=== PATIENT | female | born 1950 | race Caucasian/White ===

== ENCOUNTER → 2019-05-03 16:33 | Outpatient (CLI) | payer MEDICARE, SELFPAY ==
--- NOTE | 2019-05-03 16:40 | DI.RAD.S_ITS ---
PROCEDURE: XR KNEE LT 3V INDICATIONS: left posterior knee pain TECHNIQUE: 3 views of the knee were acquired. COMPARISON: None. FINDINGS: Bones: No fractures or dislocations. No suspicious bony lesions. Mild tricompartmental knee joint degeneration. Soft tissues: Small joint effusion. No suspicious soft tissue calcifications. IMPRESSION: 1. Mild degenerative changes. 2. Small knee joint effusion. Dictated by: Pedro Ling M.D. on 05/03/2019 at 17:40 Approved by: Pedro Ling M.D. on 05/03/2019 at 17:48
== END ==
PROVIDERS: Visit Provider Nurse Practitioner Family
DX: M25.562 Pain in left knee (principal); M25.462 Effusion, left knee
CPT/HCPCS: 73562

== ENCOUNTER → 2019-10-10 09:26 | Outpatient (CLI) | payer MEDICARE, SELFPAY ==
[2019-10-10 10:03] LABS: Add Manual Diff / Slide Review NO; Basophils Absolute Auto 0 /uL (0-100); Basophils Percent Auto 0.6 % (0-2); Eosinophils Absolute Auto 100 /uL (0-450); Eosinophils Percent Auto 0.8 % (2-4); Hematocrit 43.7 % (36-46); Hemoglobin 14.7 g/dL (12.0-16.0); Lymphocytes Absolute Auto 1500 /uL (1100-4500); Lymphocytes Percent Auto 21.4 % (25-40); Mean Corpuscular HGB Conc 33.7 % (30-36); Mean Corpuscular Hemoglobin 30.9 PG (26-34); Mean Corpuscular Volume 91.4 fL (80-100); Monocytes Absolute Auto 600 /uL (0-900); Monocytes Percent Auto 9.5 % (3-14); Neutrophils Absolute Auto 4600 /uL (1500-7000); Neutrophils Percent Auto 67.7 % (50-75); Platelet Count 300 X10^3/uL (150-400); Red Blood Cell Count 4.78 X10^6/uL (4.0-5.2); Red Cell Distribution Width 14.5 % (11.6-14.8); White Blood Cell Count 6.8 X10^3/uL (4.5-11.0)
[2019-10-10 10:37] LABS: Alanine Aminotransferase 21 IU/L (<35); Albumin 4.7 g/dL (3.5-5.0); Albumin Globulin Ratio 1.3 (1.0-2.8); Alkaline Phosphatase 62 U/L (38-126); Aspartate Aminotransferase 28 IU/L (14-36); BUN Creatinine Ratio 23.8 (6-22); Bilirubin Total 0.9 mg/dL (0.2-1.3); Blood Urea Nitrogen 19 mg/dL (7-17); Calcium 9.9 mg/dL (8.4-10.2); Carbon Dioxide 27 mmol/L (22-32); Chloride 103 mmol/L (98-107); Cholesterol 307 mg/dL (140-199); Estimated Glomerular Filt Rate > 60.0 mL/min (>60); Globulin 3.6 g/dL (1.7-4.1); Glucose 104 mg/dL (80-110); HDL Cholesterol 87 mg/dL (40-60); HEMOLYSIS < 15 (0-50); LDL Cholesterol Calculated 197 mg/dL (<100); Potassium 4.3 mmol/L (3.4-5.1); Sodium 140 mmol/L (137-145); Total Protein 8.3 g/dL (6.3-8.2); Triglycerides 115 mg/dL (35-150)
[2019-10-10 11:08] LABS: Thyroid Stimulating Hormone 2.57 uIU/mL (0.47-4.68)
== END ==
PROVIDERS: PCP Family Medicine; Referring Provider Family Medicine; Visit Provider Family Medicine
DX: E03.9 Hypothyroidism, unspecified (principal)
CPT/HCPCS: 36415; 80053; 80061; 84443; 85025

== ENCOUNTER 2021-01-31 17:57 | Emergency (ER) | payer MEDICARE, SELFPAY ==
[2021-01-31 18:07] VITALS: BP 154/79; PULSE 81; RESP 15; TEMP 36.7; O2SAT 97; BMI 27.8
--- NOTE | 2021-01-31 18:13 | DI.US.S_ITS ---
PROCEDURE: US PERIPH VENOUS LOW EXTREM RT INDICATIONS: right lower leg swelling TECHNIQUE: Real-time imaging, as well as color and pulse Doppler interrogation, were performed of the lower extremity deep veins from the inguinal ligament to the popliteal fossa. COMPARISON: None. FINDINGS: There is occlusive thrombus seen within the popliteal vein as well as the tibioperoneal trunk. IMPRESSION: Deep venous thrombosis as described above. Dictated by: Tanya Leyva M.D. on 01/31/2021 at 18:51 Approved by: Tanya Leyva M.D. on 01/31/2021 at 18:52
--- NOTE | 2021-01-31 20:04 | PC.NURSE ---
Recent travel back from [place] one week ago. Has been working long hours on hard cement floor. Noticed right calf and posterior knee pain yesterday with swelling and bruising noted I was working it thinking it was a annie horse
--- NOTE | 2021-01-31 23:21 | ED_ITS ---
HPI - Extremity Problem General Chief complaint: Extremity Problem,Nontraumatic Stated complaint: rt leg pain Time Seen by Provider: 01/31/21 23:21 Source: patient Mode of arrival: Ambulatory Limitations: no limitations History of Present Illness HPI Narrative: 70-year-old woman with a history of hypothyroidism presents with right lower extremity swelling and tenderness. She notes that she did fly home from [place] about a week ago this is only a 2-3 hour flight she is typically quite active. She has had no recent surgeries no known cancers. In the last 24 hours she had some increasing pain in the lower right calf that she thought was a charley horse in took some minimal supplementation to help with this. It awoke her from sleep this morning due to the increased spasm. She is having increasing pain overall today. She reports no chest pain, palpitations, shortness of breath she does note that she has had slight increase in overall fatigue. She describes no abdominal pain, change to bowel or bladder habits or any acute skin findings. Related Data Previous Rx's Medication Instructions Recorded thyroid (pork) 60 mg tablet 60 mg PO DAILY #90 tab 11/28/19 Allergies Allergy/AdvReac Type Severity Reaction Status Date / Time Sulfa (Sulfonamide Allergy Verified 01/31/21 18:09 Antibiotics) Review of Systems Review of Systems Narrative: Remainder of complete review of systems is otherwise unremarkable except for that included in the HPI. Patient History Medical History Chicken pox DVT (deep venous thrombosis) Fibromyalgia Food allergy Hypothyroidism Measles Mumps Osteoarthritis Posterior left knee pain (03/2019) Surgical History History of carpal tunnel repair Family History Grandfather Alcoholic Grandfather No problems noted. Grandmother No problems noted. Social History marital status: number of children: 2 household members: spouse lives independently: Yes caregiver/support person: No housing: house education level: college occupational status: employed Smoking Status: Former smoker second hand exposure: No alcohol intake: current substance use type: does not use Smoking Status: Former smoker alcohol intake frequency: a few times a week Substance Use Type: does not use Exam Narrative Exam Narrative: General: Alert appropriate in no acute distress Respiratory: Able to speak in full sentences, no obvious respiratory distress Skin: No obvious rashes, warm and dry Neurologic: Grossly intact no obvious asymmetries or abnormalities Psych: appropriate insight and affect, cooperative Extremity: Lower right posterior calf is slightly tender, mildly swollen and no evidence of cellulitis, abscess or superficial thrombophlebitis Initial Vital Signs Initial Vital Signs: Vital Signs Temperature 98.0 F 01/31/21 18:07 Pulse Rate 81 01/31/21 18:07 Respiratory Rate 15 01/31/21 18:07 Blood Pressure 154/79 H 01/31/21 18:07 Pulse Oximetry 97 01/31/21 18:07 Course Orders Ordered: Discontinued Medications Acetaminophen (Acetaminophen 325 Mg Tablet) 975 mg PO NOW ONE Stop: 01/31/21 23:37 Last Admin: 01/31/21 23:45 Dose: 975 mg Documented by: BLAIR Apixaban (Apixaban 5 Mg Tablet) 5 mg PO NOW ONE Stop: 01/31/21 23:37 Last Admin: 01/31/21 23:45 Dose: 5 mg Documented by: BLAIR Vital Signs Vital signs: Vital Signs - 8 hr 01/31/21 23:45 Pulse Rate 67 Respiratory Rate 16 Blood Pressure 183/61 H Pulse Oximetry 98 MDM - Extremity (Nontraumatic) Imaging Data US - DVT: Radiologist's Impression: PROCEDURE: US PERIPH VENOUS LOW EXTREM RT INDICATIONS: right lower leg swelling TECHNIQUE: Real-time imaging, as well as color and pulse Doppler interrogation, were performed of the lower extremity deep veins from the inguinal ligament to the popliteal fossa. COMPARISON: None. FINDINGS: There is occlusive thrombus seen within the popliteal vein as well as the tibioperoneal trunk. IMPRESSION: Deep venous thrombosis as described above. Dictated by: Tanya Leyva M.D. on 01/31/2021 at 18:51 MDM Narrative Medical decision making narrative: 70-year-old woman with right DVT. No obvious inciting reason for this. No evidence of extension proximal to the knee or of pulmonary embolism. She started on Eliquis at 5 mg b.i.d.. Instructions regarding this and need for follow-up with her primary care physician to further assess why she may have developed this DVT. Questions are answered and she is safe for home discharge Discharge Plan Departure Patient Disposition: Home Clinical Impression: Deep vein thrombosis of lower extremity Qualifiers: Affected thrombotic vein of extremity: popliteal Chronicity: acute Laterality: right Qualified Code(s): I82.431 - Acute embolism and thrombosis of right popliteal vein Instructions: DI for Deep Vein Thrombosis, Apixaban Activity Restrictions/Additional Instructions: Thank you for coming in today You have an isolated right calf deep venous thrombosis For pain you can use Tylenol and sometimes a compression sock will significantly help. You might try compression socks that are marketed for running. They typically have them in [employer]. These are very compressive, typically a bit more comfortable to wear for long periods of time. The point of the socks is to make it hurt less. If that is not helping you do not need to continue wearing them I am going to start you on Eliquis/apixaban. This is of blood thinner. You will likely need this for 6 months. If you are in any type of accident or hit your head, you are at increased risk of bleeding and need to be seen and evaluated. Please do not use aspirin or nonsteroidals like ibuprofen or Aleve while you are taking a blood thinner. Please schedule an appointment with Dr. Duckworth within the next week. She may want to do additional workup to see if we can figure out why you developed this blood clot. If you notice that your having severe chest pain, shortness of breath or rapid heart rate, all signs of a pulmonary embolism(a blood clot in your lungs), you need to come to the emergency room for further evaluation Prescriptions: No Action thyroid (pork) [[facility] Thyroid] 60 mg tablet 60 mg PO DAILY Qty: 90 RF: 3 Referrals: Veronica Tidwell MD [Primary Care Provider] -
[2021-01-31 23:45] VITALS: BP 183/61; PULSE 67; RESP 16; O2SAT 98
[2021-01-31] MEDS: ACETAMINOPHEN 325 MG TABLET 975 MG PO (23:45)
[2021-01-31] MEDS: APIXABAN 5 MG TABLET PO (23:45)
== END 2021-01-31 23:46 | disposition home or self-care (01) ==
PROVIDERS: Emergency Provider Emergency Medicine; PCP Family Medicine
DX: I82.431 Acute embolism and thrombosis of right popliteal vein (principal)
CPT/HCPCS: 93971; 99283

== ENCOUNTER 2023-06-12 16:16 | Emergency (ER) | payer OTHER, SELFPAY ==
[2023-06-12 16:51] VITALS: BP 183/77; PULSE 73; RESP 17; TEMP 36.1; O2SAT 95; BMI 27.4
--- NOTE | 2023-06-12 16:58 | DI.RAD.S_ITS ---
PROCEDURE: XR ACUTE ABDOMEN SERIES INDICATIONS: constipation TECHNIQUE: One view chest and two views of the abdomen were acquired. COMPARISON: None. FINDINGS: Surgical changes and devices: None. Chest: Lungs are clear. Heart size is normal. No pleural effusions. No pneumoperitoneum. Abdomen: Bowel gas pattern is normal. Normal to minimally increased quantity of solid stool in the ascending and descending colon. Minimal rectal stool. No suspicious calcifications. Visualized solid organ contours appear normal. Bones: No suspicious bony lesions. IMPRESSION: 1. Minimally increased quantity of colonic stool. Dictated by: Rocio Santamaria M.D. on 06/12/2023 at 17:45 Approved by: Rocio Santamaria M.D. on 06/12/2023 at 17:46
--- NOTE | 2023-06-12 20:08 | ED.GENADULT ---
HPI - General Adult General Chief complaint: Abdominal Pain Stated complaint: thinks has a blockage Time Seen by Provider: 06/12/23 19:51 Source: patient Mode of arrival: Ambulatory History of Present Illness HPI narrative: Patient is a 73-year-old female. No prior abdominal surgeries. States for the past several days she has felt very constipated. She gave herself an enema several days ago and did have a bowel movement. She then went a couple days without a bowel movement and gave herself another enema and then had another bowel movement afterwards. She states she still does not feel like she is completely emptying her bowels. She is having some nausea without vomiting. States she has not passed any flatus. No fevers. No urinary symptoms. No blood in her stool. Related Data Previous Rx's Medication Instructions Recorded hydrocortisone 2.5 % topical cream 1 applic [place] BID-QID PRN 12/19/22 with perineal applicator hemorrhoids #30 grams (Anusol-HC) thyroid (pork) 60 mg tablet ([employer] See Rx Instructions .Route 03/12/23 Thyroid) .COMPLEX #90 tabs Allergies Allergy/AdvReac Type Severity Reaction Status Date / Time Sulfa (Sulfonamide Allergy UNKNOWN Verified 06/12/23 16:51 Antibiotics) Review of Systems Constitutional Constitutional: Reports system reviewed and no additional complaints, except as documented Gastrointestinal Gastrointestinal: Reports system reviewed and no additional complaints, except as documented Genitourinary Genitourinary: Reports system reviewed and no additional complaints, except as documented Integumentary/Breasts Skin/Breast: Reports system reviewed and no additional complaints, except as documented Neurologic Neurologic: Reports system reviewed and no additional complaints, except as documented Patient History Medical History DVT (deep venous thrombosis) Posterior left knee pain (03/2019) Osteoarthritis Food allergy Fibromyalgia Mumps Measles Chicken pox Hypothyroidism Surgical History History of carpal tunnel repair Family History Grandfather Alcoholic Grandfather No problems noted. Grandmother No problems noted. Social History marital status: number of children: 2 household members: spouse lives independently: Yes caregiver/support person: No housing: house education level: college occupational status: employed Smoking Status: Former smoker second hand exposure: No alcohol intake: current substance use type: does not use Smoking Status: Former smoker alcohol intake frequency: a few times a week Substance Use Type: does not use Exam Initial Vital Signs Initial Vital Signs: Vital Signs Temperature 97.0 F L 06/12/23 16:51 Pulse Rate 73 06/12/23 16:51 Respiratory Rate 17 06/12/23 16:51 Blood Pressure 183/77 H 06/12/23 16:51 Pulse Oximetry 95 06/12/23 16:51 Oxygen Delivery Method Room Air 06/12/23 16:51 Const General: cooperative and comfortable Resp Effort & Inspection: normal respiratory effort Cardio Rate: regular rate GI Inspection: normal to inspection Neuro General: patient alert, patient awake and moves all extremities Course Orders Ordered: ED Orders 06/12/23 20:08 CT abdomen pelvis w con Stat 06/12/23 20:30 Basic Metabolic Panel Stat Complete Blood Count AUTO DIFF Stat Discontinued Medications Sodium Chloride (Normal Saline 0.9%) 1,000 mls @ 1,000 mls/hr IV BOLUS ONE Stop: 06/12/23 21:07 Last Infusion: 06/12/23 21:43 Dose: Infused Documented By: Admin: 06/12/23 20:43 Dose: 1,000 mls/hr Documented By: RENETTA Vital Signs Vital signs: Vital Signs - 8 hr 06/12/23 23:09 Temperature 98 F Pulse Rate 72 Respiratory Rate 16 Blood Pressure 138/74 Pulse Oximetry 97 Oxygen Delivery Method Room Air Medical Decision Making Lab Data Lab results reviewed: Yes I reviewed the patient's lab results. 06/12/23 20:30 06/12/23 20:30 Labs: Lab Results 06/12/23 Range/Units 20:30 WBC 8.4 (4.5-11.0) X10^3/uL RBC 4.73 (4.0-5.2) X10^6/uL Hgb 14.5 (12.0-16.0) g/dL Hct 43.3 (36-46) % MCV 91.6 (80-100) fL MCH 30.7 (26-34) PG MCHC 33.5 (30-36) % RDW 14.4 (11.6-14.8) % Plt Count 330 (150-400) X10^3/uL Neut % (Auto) 69.5 (50-75) % Lymph % (Auto) 18.9 L (25-40) % Giles % (Auto) 10.0 (3-14) % Eos % (Auto) 1.0 L (2-4) % Baso % (Auto) 0.6 (0-2) % Neut # (Auto) 5800 (5937-8269) /uL Lymph # (Auto) 1600 (0187-2211) /uL Giles # (Auto) 800 (0-900) /uL Eos # (Auto) 100 (0-450) /uL Baso # (Auto) 100 (0-100) /uL Sodium 139 (137-145) mmol/L Potassium 4.0 (3.4-5.1) mmol/L Chloride 103 (98-107) mmol/L Carbon Dioxide 23 (22-32) mmol/L BUN 17 (7-17) mg/dL Creatinine 0.63 (0.52-1.04) mg/dL Estimated GFR > 60 (>60) mL/min BUN/Creatinine Ratio 27.0 H (6-22) Glucose 91 (80-110) mg/dL Calcium 10.0 (8.4-10.2) mg/dL Urine Dip Bedside Urine Glucose Negative Bedside Urine Bilirubin - Negative Urine Specific [place] 1.010 Bedside Urine Occult Blood - Negative Bedside Urine pH 6.0 Bedside Urine Protein - Negative Bedside Urine Urobilinogen - Negative Bedside Urine Nitrite - Negative Bedside Urine Leukocytes - Negative Esterase Point of care testing: Urine Dip Bedside Urine Glucose Negative Bedside Urine Bilirubin - Negative Urine Specific [place] 1.010 Bedside Urine Occult Blood - Negative Bedside Urine pH 6.0 Bedside Urine Protein - Negative Bedside Urine Urobilinogen - Negative Bedside Urine Nitrite - Negative Bedside Urine Leukocytes - Negative Esterase Imaging Data Abdominal x-ray: Radiologist's Impression: PROCEDURE: XR ACUTE ABDOMEN SERIES INDICATIONS: constipation TECHNIQUE: One view chest and two views of the abdomen were acquired. COMPARISON: None. FINDINGS: Surgical changes and devices: None. Chest: Lungs are clear. Heart size is normal. No pleural effusions. No pneumoperitoneum. Abdomen: Bowel gas pattern is normal. Normal to minimally increased quantity of solid stool in the ascending and descending colon. Minimal rectal stool. No suspicious calcifications. Visualized solid organ contours appear normal. Bones: No suspicious bony lesions. IMPRESSION: 1. Minimally increased quantity of colonic stool. CT scan - abdomen/pelvis: Radiologist's Impression: PROCEDURE: CT ABDOMEN PELVIS W CON INDICATIONS: Eval for bowel obstruction TECHNIQUE: After the administration of oral and IV contrast, axial sections were acquired from the lung bases to the pubic symphysis. Coronal and sagittal reformats were performed. For radiation dose reduction, the following was used: automated exposure control, adjustment of mA and/or kV according to patient size. COMPARISON: None. FINDINGS: Image quality: Excellent. Lung bases: Right middle lobe scars and atelectasis. Small hiatal hernia. Heart: No significant findings. ABDOMEN: Liver: Unremarkable. Gallbladder: Unremarkable. Biliary ducts: Unremarkable. Pancreas: Unremarkable. Spleen: Unremarkable. Adrenal Glands: Unremarkable. Kidneys and Ureters: Unremarkable. Stomach and Bowel: Stomach, small bowel loops, and colon are unremarkable. Peritoneum: No abnormal intraperitoneal fluid. No free air. Ventral Wall: No hernia. Abdominal Nodes: No retroperitoneal or mesenteric adenopathy by size criteria. Vessels: Aorta and inferior vena cava are normal in size. Mild to moderate aortic atherosclerosis. PELVIS: Pelvic Organs: Unremarkable. Bladder: Unremarkable. Pelvic Nodes: No enlarged lymph nodes. Miscellaneous: No inguinal hernias are seen. Bones: Severe degenerative disease at L5-S1 causing moderate central canal stenosis. IMPRESSION: 1. No acute abnormalities in abdomen or pelvis. 2. No findings to suggest bowel obstruction. 3. Small hiatal hernia. [facility] Narrative Medical decision making narrative: The x-ray at CT scan do not show any signs of a bowel obstruction. She is a benign exam. Labs are unremarkable. She stated that after the CT scan she did start to pass some flatus. There was no indication for admission to the hospital or surgical consultation. We did discuss the use of oral laxatives. Discussed the use of enemas as well. She was given return precautions. She expressed understanding and agreement. Discharge Plan Departure Patient Disposition: Home Clinical Impression: Constipation Instructions: DI for Constipation Activity Restrictions/Additional Instructions: I do recommend that you use the laxatives like we discussed. Be sure that you are increasing your fluid intake. Return in the emergency department for new or worsening symptoms. Prescriptions: No Action hydrocortisone [Anusol-HC] 2.5 % cream with perineal applicator 1 applic [place] BID-QID PRN (Reason: hemorrhoids) Qty: 30 2RF [employer] Thyroid 60 mg tablet See Rx Instructions .ROUTE .COMPLEX Qty: 90 1RF Dose Instruction: TAKE 1 TABLET BY MOUTH DAILY Rx Instructions: TAKE 1 TABLET BY MOUTH DAILY * [employer]OR thyroid Referrals: Veronica Tidwell MD [Primary Care Provider] - Stand Alone Forms: Patient Portal/API
[2023-06-12] MEDS: SODIUM CHLORIDE 0.9% 1,000 ML 1000 ML IV (20:43)
[2023-06-12 20:51] LABS: Add Manual Diff / Slide Review NO; Basophils Absolute Auto 100 /uL (0-100); Basophils Percent Auto 0.6 % (0-2); Eosinophils Absolute Auto 100 /uL (0-450); Hematocrit 43.3 % (36-46); Hemoglobin 14.5 g/dL (12.0-16.0); Lymphocytes Absolute Auto 1600 /uL (1100-4500); Lymphocytes Percent Auto 18.9 % (25-40); Mean Corpuscular HGB Conc 33.5 % (30-36); Mean Corpuscular Hemoglobin 30.7 PG (26-34); Mean Corpuscular Volume 91.6 fL (80-100); Monocytes Absolute Auto 800 /uL (0-900); Neutrophils Absolute Auto 5800 /uL (1500-7000); Neutrophils Percent Auto 69.5 % (50-75); Platelet Count 330 X10^3/uL (150-400); Red Blood Cell Count 4.73 X10^6/uL (4.0-5.2); Red Cell Distribution Width 14.4 % (11.6-14.8); White Blood Cell Count 8.4 X10^3/uL (4.5-11.0)
[2023-06-12 20:59] LABS: Blood Urea Nitrogen 17 mg/dL (7-17); Carbon Dioxide 23 mmol/L (22-32); Chloride 103 mmol/L (98-107); Estimated Glomerular Filt Rate > 60 mL/min (>60); Glucose 91 mg/dL (80-110); HEMOLYSIS 25 (0-50); Sodium 139 mmol/L (137-145)
[2023-06-12 23:09] VITALS: BP 138/74; PULSE 72; RESP 16; TEMP 36.6; O2SAT 97
== END 2023-06-12 23:00 | disposition home or self-care (01) ==
PROVIDERS: Emergency Provider Emergency Medicine; PCP Family Medicine
DX: K59.00 Constipation, unspecified (principal)
CPT/HCPCS: 36415; 74022; 74177; 80048; 81003; 85025; 99284; Q9967

== ENCOUNTER → 2023-10-19 14:01 | Outpatient (CLI) | payer MEDICARE, SELFPAY ==
[2023-10-19 15:16] LABS: TSH w/ Reflex to FT4 1.56 uIU/mL (0.47-4.68)
== END ==
PROVIDERS: PCP Family Medicine; Referring Provider Family Medicine; Visit Provider Family Medicine
DX: E03.9 Hypothyroidism, unspecified (principal)
CPT/HCPCS: 36415; 84443

== ENCOUNTER → 2023-12-28 15:21 | Outpatient (CLI) | payer MEDICARE, SELFPAY ==
--- NOTE | 2023-12-28 15:30 | DI.US.S_ITS ---
PROCEDURE: US PELVIC COMPLETE INDICATIONS: postmenopausal bleeding TECHNIQUE: Real-time scanning was performed of the pelvic organs, with image documentation. Additional endovaginal scanning was necessary due to incomplete visualization of the adnexal and endometrial structures by transabdominal scanning. COMPARISON: None. FINDINGS: Uterus: Uterus is anteverted and normal in size at 7.6 x 3.6 x 3.8 cm. The myometrium is homogeneous. The endometrium measures 7 mm combined thickness. Ovaries: Neither ovary visualized Other: No pathologic free abdominal or pelvic fluid. IMPRESSION: Unremarkable ultrasound the pelvis. Neither ovary visualized Approved by: Leonid Fernandez M.D. on 12/28/2023 at 17:09
== END ==
PROVIDERS: PCP Family Medicine; Referring Provider Family Medicine; Visit Provider Family Medicine
DX: N95.0 Postmenopausal bleeding (principal)
CPT/HCPCS: 76830; 76856

== ENCOUNTER 2024-07-13 11:56 | Observation (INO) | payer MEDICARE, SELFPAY ==
[2024-07-13] VITALS (16 sets, daily range): BP systolic 118–164; BP diastolic 60–78; PULSE 68–94; RESP 16–24; TEMP 36.4–37.1; O2SAT 95–98; BMI 28.9
--- NOTE | 2024-07-13 12:52 | ED_ITS ---
HPI - GI Bleed General Chief complaint: GI Bleed Stated complaint: per pt internal bleeding Time Seen by Provider: 07/13/24 12:23 Source: patient Mode of arrival: Ambulatory History of Present Illness HPI Narrative: 74-year-old woman presents with black stool starting 7 days ago. Also complains of global weakness, nausea, dizziness, with exertional dyspnea. Patient has a history of DVT was on Coumadin but has replaced the Coumadin with fermented cinnamon recently. She notes that she had some bright red bleeding per rectum 53351 years ago with normal colonoscopy follow up. She has not had upper GI bleeding. She notes she has been taking quite a bit of aspirin for musculoskeletal reasons recently but has since stopped. Related Data Previous Rx's Medication Instructions Recorded thyroid (pork) 60 mg tablet ([employer] 60 mg PO DAILY #90 tabs 05/17/24 Thyroid) Allergies Allergy/AdvReac Type Severity Reaction Status Date / Time Sulfa (Sulfonamide Allergy UNKNOWN Verified 07/13/24 12:10 Antibiotics) Review of Systems Review of Systems Narrative: Pertinent positive and negative findings as per HPI Patient History Medical History DVT (deep venous thrombosis) Posterior left knee pain (03/2019) Osteoarthritis Food allergy Fibromyalgia Mumps Measles Chicken pox Hypothyroidism Surgical History History of carpal tunnel repair Family History Grandfather Alcoholic Grandfather No problems noted. Grandmother No problems noted. Social History marital status: number of children: 2 household members: spouse lives independently: Yes caregiver/support person: No housing: house education level: college occupational status: employed Smoking Status: Former smoker second hand exposure: No alcohol intake: current substance use type: does not use Smoking Status: Former smoker alcohol intake frequency: a few times a week Exam Initial Vital Signs Initial Vital Signs: Vital Signs Temperature 98.8 F 07/13/24 12:05 Pulse Rate 94 H 07/13/24 12:05 Respiratory Rate 18 07/13/24 12:05 Blood Pressure 126/69 07/13/24 12:05 Pulse Oximetry 96 07/13/24 12:05 Oxygen Delivery Method Room Air 12/04/24 12:05 General: Healthy appearing, in no acute distress. Able to give a complete and coherent history. Well-nourished well-developed HEENT: Moist mucous membranes, normal sclera with reactive pupils, Respiratory: Lungs are clear to auscultation, no wheezing no rales no rhonchi. Full and symmetrical air movement Cardiac: Regular rate and rhythm no murmurs no bruits Abdomen: Soft, nontender, good bowel tones, no flank pain Rectal: Soft black stool that is guaiac positive is noted Skin: Warm and dry, no rashes, she has not pale Neurologic: Grossly neurologically intact with no obvious asymmetries or abnormalities Extremities: No trauma, well perfused Psych: Cooperative, appropriate insight and affect Course Orders Ordered: ED Orders 07/13/24 12:11 EKG-12 Lead Stat 07/13/24 12:54 Complete Blood Count AUTO DIFF Stat Comprehensive Metabolic Panel Stat PTT Partial Thromboplastin Prudencio Stat Prothrombin Time INR Stat Type and Screen Stat 07/13/24 17:39 Consult to General Surgery Stat Acetaminophen (Acetaminophen 325 Mg Tablet) 650 mg PO Q6H PRN PRN Reason: Fever/Mild Pain (1-3) Sodium Chloride (Normal Saline 0.9%) 1,000 mls @ 1,000 mls/hr IV BOLUS ONE Stop: 07/13/24 18:38 Dextrose/Sodium Chloride (Dextrose 5%-0.9% Ns) 1,000 mls @ 100 mls/hr IV CONT JENNIFER Naloxone HCl (Naloxone 0.4 Mg/Ml Vial) 0.2 mg IV Q2MIN PRN PRN Reason: Opiate Reversal Ondansetron HCl (Ondansetron 4 Mg/2 Ml Inj) 4 mg IV NOW PRN PRN Reason: Nausea And Vomiting Ondansetron HCl (Ondansetron 4 Mg Odt) 4 mg SL NOW PRN PRN Reason: Nausea And Vomiting Ondansetron HCl (Ondansetron 4 Mg/2 Ml Inj) 4 mg IV Q8HR PRN PRN Reason: Nausea And Vomiting Pantoprazole Sodium (Pantoprazole 40 Mg Vial) 40 mg IV BID JENNIFER Polyethylene Glycol/Electrolytes ([id number]/Sod Sulf,Bicarb,Cl/Kcl 4,000 Ml Solution) 4,000 ml PO NOW ONE Stop: 07/13/24 20:01 Discontinued Medications Sodium Chloride (Normal Saline 0.9%) 1,000 mls @ 1,000 mls/hr IV BOLUS ONE Stop: 07/13/24 18:25 Pantoprazole Sodium (Pantoprazole 40 Mg Vial) 80 mg IV NOW ONE Stop: 07/13/24 12:12 Last Admin: 07/13/24 13:02 Dose: 80 mg Documented By: BRENDA Polyethylene Glycol/Electrolytes ([id number]/Sod Sulf,Bicarb,Cl/Kcl 4,000 Ml Solution) 4,000 ml PO NOW ONE Stop: 07/13/24 18:00 Vital Signs Vital signs: Vital Signs - 8 hr 07/13/24 12:05 07/13/24 13:01 07/13/24 13:02 Temperature 98.8 F Pulse Rate 94 H 84 83 Respiratory Rate 18 24 Blood Pressure 126/69 Pulse Oximetry 96 98 97 Oxygen Delivery Method Room Air 07/13/24 13:02 07/13/24 13:30 07/13/24 13:30 Temperature Pulse Rate 79 Respiratory Rate Blood Pressure 130/62 118/61 Pulse Oximetry 96 Oxygen Delivery Method 07/13/24 14:00 07/13/24 14:00 07/13/24 14:30 Temperature Pulse Rate 76 71 Respiratory Rate Blood Pressure 127/61 Pulse Oximetry 95 96 Oxygen Delivery Method Room Air 07/13/24 14:30 07/13/24 15:00 07/13/24 15:00 Temperature Pulse Rate 73 Respiratory Rate Blood Pressure 130/64 126/60 Pulse Oximetry 96 Oxygen Delivery Method 07/13/24 15:30 07/13/24 15:30 Temperature Pulse Rate 73 Respiratory Rate Blood Pressure 146/68 H Pulse Oximetry 97 Oxygen Delivery Method MDM - GI Bleed Lab Data 07/13/24 12:54 07/13/24 12:54 Labs: Lab Results 07/13/24 Range/Units 12:54 WBC 8.3 (4.5-11.0) X10^3/uL RBC 2.83 L (4.0-5.2) X10^6/uL Hgb 8.7 L (12.0-16.0) g/dL Hct 25.9 L (36-46) % MCV 91.7 (80-100) fL MCH 30.8 (26-34) PG MCHC 33.5 (30-36) % RDW 15.6 H (11.6-14.8) % Plt Count 360 (150-400) X10^3/uL Neut % (Auto) 77.2 H (50-75) % Lymph % (Auto) 15.4 L (25-40) % [place] % (Auto) 6.4 (3-14) % Eos % (Auto) 0.2 L (2-4) % Baso % (Auto) 0.8 (0-2) % Neut # (Auto) 6400 (4345-2358) /uL Lymph # (Auto) 1300 (2566-3700) /uL [place] # (Auto) 500 (0-900) /uL Eos # (Auto) 0 (0-450) /uL Baso # (Auto) 100 (0-100) /uL PT 11.3 (9.4-12.5) SECONDS INR 1.0 (0.9-1.3) APTT 27 (25.1-36.5) SECONDS Sodium 137 (137-145) mmol/L Potassium 3.7 (3.4-5.1) mmol/L Chloride 104 (98-107) mmol/L Carbon Dioxide 28 (22-32) mmol/L BUN 22 H (7-17) mg/dL Creatinine 0.75 (0.52-1.04) mg/dL Estimated GFR > 60 (>60) mL/min BUN/Creatinine Ratio 29.3 H (6-22) Glucose 96 (80-110) mg/dL Calcium 9.4 (8.4-10.2) mg/dL Total Bilirubin 0.4 (0.2-1.3) mg/dL AST 29 (14-36) IU/L ALT 26 (<35) IU/L Alkaline Phosphatase 49 (38-126) U/L Total Protein 6.4 (6.3-8.2) g/dL Albumin 3.9 (3.5-5.0) g/dL Globulin 2.5 (1.7-4.1) g/dL Albumin/Globulin Ratio 1.6 (1.0-2.8) Blood Type B Positive Antibody Screen Negative Point of Care Testing Stool Occult Blood Positive Urine Dip Bedside Urine Glucose Negative Bedside Urine Bilirubin - Negative Bedside Urine Ketone - Negative Urine Specific Hanna 1.005 Bedside Urine Occult Blood - Negative Bedside Urine pH 6.0 Bedside Urine Protein - Negative Bedside Urine Urobilinogen - Negative Bedside Urine Nitrite - Negative Bedside Urine Leukocytes - Negative Esterase MDM Narrative Medical decision making narrative: CC: Black stool for almost a week Complicating co-morbidities: Prior DVT non provoked, she was on warfarin for a few months, was ready to discontinue this and switch to fermented cinnamon which she stopped on Thursday Data collected from: patient Differential considered: Medications or foods causing change to stool, viral syndrome, upper GI bleeding, Exam documented above, pertinent findings include: Exam is benign, she has not tachycardic, her skin color and overall perfusion is good. She does have guaiac-positive stool Lab Test results independently reviewed as above. Pertinent findings: Chemistries are reassuring CBC shows no leukocytosis, normal platelets. Hemoglobin has dropped from 14.5 June last year to 8.7 today hemoglobin has dropped 43.3-25.9 Independently reviewed EKG: EKG shows sinus rhythm at a rate of 81 Consultations: Dr Pope, surgery. Does believe that endoscopies going to be appropriate. As she is hemodynamically stable see if we can begin a bowel prep this evening and if the endoscopy is unremarkable she can immediately have a colonoscopy. Treatments: Protonix, IV fluid Discussion: 74-year-old woman with black stools for the last 6 days. Mild nausea, no vomiting. No prior history of upper GI bleed. She notes she has been taking quite a bit of aspirin recently she has had a significant drop in H&H over the last year and today is complaining of dizziness when standing along with exertional dyspnea suggesting that this is more an acute bleed. We will discuss admission with the hospitalist service with GI prep for colonoscopy started this evening. She can certainly have clear liquids until midnight and NPO after that in anticipation of upper endoscopy tomorrow afternoon with Dr. Pope. Findings reviewed with the patient and she is amenable. She does note that she would not want blood transfusion unless ?she was dying?. We talked about hemodynamic instability in the fact that right now she seems relatively stable and does not require a transfusion. If you will be getting to vomit up blood she likely would need a transfusion at that time. She understands and agrees. Patient will be admitted Discharge Plan Departure Patient Disposition: Admitted As Inpatient Clinical Impression: Acute upper gastrointestinal bleeding, Acute blood loss anemia, Exertional dyspnea, Orthostatic hypotension Admit Date/Time: 07/13/24 17:51 Admit Provider: Salomón Mijares
[2024-07-13] MEDS: PANTOPRAZOLE 40 MG VIAL 80 MG IV (13:02)
[2024-07-13 13:05] LABS: Add Manual Diff / Slide Review NO; Basophils Absolute Auto 100 /uL (0-100); Basophils Percent Auto 0.8 % (0-2); Eosinophils Absolute Auto 0 /uL (0-450); Eosinophils Percent Auto 0.2 % (2-4); Hematocrit 25.9 % (36-46); Hemoglobin 8.7 g/dL (12.0-16.0); Lymphocytes Absolute Auto 1300 /uL (1100-4500); Lymphocytes Percent Auto 15.4 % (25-40); Mean Corpuscular HGB Conc 33.5 % (30-36); Mean Corpuscular Hemoglobin 30.8 PG (26-34); Mean Corpuscular Volume 91.7 fL (80-100); Monocytes Absolute Auto 500 /uL (0-900); Monocytes Percent Auto 6.4 % (3-14); Neutrophils Absolute Auto 6400 /uL (1500-7000); Neutrophils Percent Auto 77.2 % (50-75); Platelet Count 360 X10^3/uL (150-400); Red Blood Cell Count 2.83 X10^6/uL (4.0-5.2); Red Cell Distribution Width 15.6 % (11.6-14.8); White Blood Cell Count 8.3 X10^3/uL (4.5-11.0)
--- NOTE | 2024-07-13 13:06 | EKG_ITS ---
[address] [address] Test Date: 2024-07-13 Pat Name: Zoila Case Department: [facility] Room: Gender: Female Sugar Coating Hand: KAYLIE : 1950 Requested By: Order Number: [id number] Reading MD: Chase Garcia MD Measurements Intervals [place] Rate: 81 P: 49 OH: 182 QRS: 40 QRSD: 90 T: 19 QT: 400 QTc: 464 Interpretive Statements Normal sinus rhythm Electronically Signed On 07-14-2024 6:46:50 PST by Chase Garcia MD
[2024-07-13 13:11] LABS: Prothrombin Time 11.3 SECONDS (9.4-12.5)
[2024-07-13 13:14] LABS: PTT Partial Thromboplastin Tim 27 SECONDS (25.1-36.5)
[2024-07-13 13:15] LABS: Alanine Aminotransferase 26 IU/L (<35); Albumin 3.9 g/dL (3.5-5.0); Albumin Globulin Ratio 1.6 (1.0-2.8); Alkaline Phosphatase 49 U/L (38-126); Aspartate Aminotransferase 29 IU/L (14-36); BUN Creatinine Ratio 29.3 (6-22); Bilirubin Total 0.4 mg/dL (0.2-1.3); Blood Urea Nitrogen 22 mg/dL (7-17); Calcium 9.4 mg/dL (8.4-10.2); Carbon Dioxide 28 mmol/L (22-32); Chloride 104 mmol/L (98-107); Estimated Glomerular Filt Rate > 60 mL/min (>60); Globulin 2.5 g/dL (1.7-4.1); Glucose 96 mg/dL (80-110); HEMOLYSIS < 15 (0-50); Potassium 3.7 mmol/L (3.4-5.1); Sodium 137 mmol/L (137-145); Total Protein 6.4 g/dL (6.3-8.2)
--- NOTE | 2024-07-13 13:17 | PC.NURSE ---
Patient here in department for concerns of blood in her poop, noticed it after thanksgiving but thought that maybe it was huckleberry pie. Has also felt lightheaded over past couple of days and has been taking a lot of aspirin without food. Patient states that they do not want blood products because they dont want to receive any of the vaccine.
--- NOTE | 2024-07-13 14:34 | PC.NURSE ---
Patient initially refused the type and screen stating that she did not want to receive blood with the vaccine, patient changed her mind that she would like a transfusion in the event of an emergency like If i were on the surgery table and started bleeding out. Provider Vish hurst
--- NOTE | 2024-07-13 17:44 | PM.HP.1 ---
History of Present Illness History of Present Illness Date Patient Seen: 07/13/24 Time Patient Seen: 17:45 Chief complaint: per pt internal bleeding Narrative: From ER doctor: 74-year-old woman presents with black stool starting 7 days ago. Also complains of global weakness, nausea, dizziness, with exertional dyspnea. Patient has a history of DVT was on Coumadin but has replaced the Coumadin with fermented cinnamon recently. She notes that she had some bright red bleeding per rectum [address] years ago with normal colonoscopy follow up. She has not had upper GI bleeding. She notes she has been taking quite a bit of aspirin for musculoskeletal reasons recently but has since stopped. Additional information: She was had 5 days of melena. She takes about 4 aspirin a day for her osteoarthritis. She does not take ibuprofen. She was drinking more wine than usual over the holidays. She does had some epigastric abdominal pain and queasiness but no vomiting or hematemesis. She would like to avoid a blood transfusion at any cost. I reassured that we should be able to do that based on her hemoglobin and the number of days that she was had melena. [facility] Medical History DVT (deep venous thrombosis) Posterior left knee pain (03/2019) Osteoarthritis Food allergy Fibromyalgia Mumps Measles Chicken pox Hypothyroidism Surgical History History of carpal tunnel repair Family History Grandfather Alcoholic Grandfather No problems noted. Grandmother No problems noted. Social History marital status: number of children: 2 household members: spouse lives independently: Yes caregiver/support person: No housing: house education level: college occupational status: employed Smoking Status: Former smoker second hand exposure: No alcohol intake: current substance use type: does not use Meds Home Medications and Allergies Home Medications Medication Instructions Recorded Confirmed Type thyroid (pork) 60 mg tablet ([employer] 60 mg PO DAILY #90 tabs 05/17/24 06/25/24 Rx Thyroid) Allergies Allergy/AdvReac Type Severity Reaction Status Date / Time Sulfa (Sulfonamide Allergy UNKNOWN Verified 07/13/24 12:10 Antibiotics) Review of Systems Review of Systems Narrative: All else reviewed and otherwise unremarkable except as noted in the history and physical. Exam Vital Signs (past 8 hours): - 07/13/24 12:05 07/13/24 13:01 07/13/24 13:02 Temperature 98.8 F Pulse Rate 94 H 84 83 Respiratory Rate 18 24 Blood Pressure 126/69 Pulse Oximetry 96 98 97 Oxygen Delivery Method Room Air 07/13/24 13:02 07/13/24 13:30 07/13/24 13:30 Temperature Pulse Rate 79 Respiratory Rate Blood Pressure 130/62 118/61 Pulse Oximetry 96 Oxygen Delivery Method 07/13/24 14:00 07/13/24 14:00 07/13/24 14:30 Temperature Pulse Rate 76 71 Respiratory Rate Blood Pressure 127/61 Pulse Oximetry 95 96 Oxygen Delivery Method Room Air 07/13/24 14:30 07/13/24 15:00 07/13/24 15:00 Temperature Pulse Rate 73 Respiratory Rate Blood Pressure 130/64 126/60 Pulse Oximetry 96 Oxygen Delivery Method 07/13/24 15:30 07/13/24 15:30 Temperature Pulse Rate 73 Respiratory Rate Blood Pressure 146/68 H Pulse Oximetry 97 Oxygen Delivery Method Oxygen Delivery Method Room Air Narrative Exam Narrative: NAD, alert and oriented, fluent speech, calm. Normocephalic skull, EOMI, anicteric sclera, symmetric pupils. Oropharynx unremarkable, no droop. Neck supple, midline trachea, no adenopathy. Lungs clear, normal rate and effort. Heart regular, no murmur gallop or rub. Abdomen is soft, non distended and non tender. Extremities are free of edema. Skin is free of rash or lesions. Joints are not swollen or deformed. Judgment appears to be normal. Objective ECG Impression: Normal sinus rhythm Labs 07/13/24 12:54 07/13/24 12:54 Labs: Laboratory Results - last 24 hr 07/13/24 12:54 WBC 8.3 RBC 2.83 L Hgb 8.7 L Hct 25.9 L MCV 91.7 MCH 30.8 MCHC 33.5 RDW 15.6 H Plt Count 360 Neut % (Auto) 77.2 H Lymph % (Auto) 15.4 L [place] % (Auto) 6.4 Eos % (Auto) 0.2 L Baso % (Auto) 0.8 Neut # (Auto) 6400 Lymph # (Auto) 1300 [place] # (Auto) 500 Eos # (Auto) 0 Baso # (Auto) 100 PT 11.3 INR 1.0 APTT 27 Sodium 137 Potassium 3.7 Chloride 104 Carbon Dioxide 28 BUN 22 H Creatinine 0.75 Estimated GFR > 60 BUN/Creatinine Ratio 29.3 H Glucose 96 Calcium 9.4 Total Bilirubin 0.4 AST 29 ALT 26 Alkaline Phosphatase 49 Total Protein 6.4 Albumin 3.9 Globulin 2.5 Albumin/Globulin Ratio 1.6 Blood Type B Positive Antibody Screen Negative Assessment & Plan Assessment & Plan narrative: 1. GI bleed with melena, present on admission and active. 2. Remote DVT, not present on admission are active. 3. Exertional dyspnea secondary to blood loss anemia, present on admission and active. Plan: -PPI IV q.12 hours -monitor hemoglobin, patient was reluctant to receive blood products. -general surgery was consulted in the ED, EGD plus or minus colonoscopy on July 14. We will prep for colonoscopy tonight. -avoid blood transfusions if at all possible. Inpatient status, anticipate a 2 midnight length of stay. Full resuscitation. ELIZA is July 15. Time-Based Coding :: 35 min spent with patient and on the chart (including review of chart, obtaining history, exam, reviewing outside data, placing orders, documenting exam and treatment plan, and counseling patient) on 07/13. Quality MIPS - Admit I confirm the patient?s Advance Care Plan is present, Code status is documented, Surrogate decision maker is in patient?s record [If Yes, STOP here]: Yes MIPS - Meds 'Current medications' to include all prescriptions, [id number] products, herbals, cannabis/cannabidiol products, and vitamin/mineral/dietary (nutritional) supplements. I have utilized all available resources to obtain, update, or review the patient?s current medications. [If Yes, STOP here]: Yes
--- NOTE | 2024-07-13 18:37 | CM.DANOTE ---
DCP Assessment Note: Pt is a 74yo female, resident of [place], is admitted for upper GI bleeding. Pt lives in a house with her , Kem. Pt's Primary Care Provider is Dr. CRAWLEY and insurance is XXX. Reviewed chart and team rounds for pt's medical status and initial discharge needs. DCP met w/patient at bedside; introduced self and role. Patient was found in bed, alert and oriented, cooperative with assessment. Pt confirmed living situation and good support in . Pt expressed preference in [place]. Pt has a hx of [place]. Pt agreeable to working with therapies and following their recommendations. Plan: Awaiting PT/OT evaluations and recommendation for evolving discharge plans. CM team will follow closely for coordination of discharge plans. KENJI Arguello Discharge Planning/Care Management CM Discharge Assessment Start: 07/13/24 18:36 Freq: Status: Active Protocol: Document 07/13/24 12:11 MW (Rec: 07/13/24 18:37 MW [id number]) Discharge Planning Assessment Assigned Formula Clerk JULIO Merritt DPOA/Assigned Designee Name Javad Teran Contact Information [phone] Advance Directives? No History Provided By Patient,Medical Record Has Patient been admitted in last 30 No days? Prior Living Arrangements House Household Members spouse Type of transporation used prior to Drives own vehicle admit Independent with ADL's Yes Is patient alert and oriented? Yes Caregiver for Another Yes: undergoing CA treatment Barriers to Discharge No Discharge Plan Home Referrals Initiated None needed Review Status In Process Please Provide Date Initial DC 07/13/24 Assessment Was Performed Next Review Type Continued Stay Review Document 07/13/24 18:36 MW (Rec: 07/13/24 18:37 MW [id number]) Discharge Planning Assessment Advance Directives? No Household Members spouse
--- NOTE | 2024-07-13 18:39 | CM.DANOTE ---
DCP Assessment Note: Pt is a 74yo female, resident of [place], is admitted for upper GI bleeding. Pt lives in a house with her , Kem. Pt's Primary Care Provider is Dr. Veronica Tidwell and insurance is [employer]. Reviewed chart and team rounds for pt's medical status and initial discharge needs. ED KEY PERSON met w/patient at bedside; introduced self and role. Patient was found in bed, alert and oriented, cooperative with assessment. Pt confirmed living situation and good support in daughter, Parul (ph#[phone]) who is pt's primary contact at this time as her is undergoing CA treatment at this time. Pt expressed preference in returning home when appropriate. Pt verbalized understanding of plans for admission and endoscopy tomorrow. Plan: Pending admission to acute care floor for scheduled endoscopy tomorrow, 07/[address] Pope. CM team will follow closely for coordination of discharge plans. KENJI Arguello Discharge Planning/Care Management CM Discharge Assessment Start: 07/13/24 18:36 Freq: Status: Active Protocol: Document 07/13/24 12:11 MW (Rec: 07/13/24 18:37 MW [id number]) Discharge Planning Assessment Assigned Lens Edge Grinder Machine JULIO Merritt DPOA/Assigned Designee Name Javad Teran Contact Information [phone] Advance Directives? No History Provided By Patient,Medical Record Has Patient been admitted in last 30 No days? Prior Living Arrangements House Household Members spouse Type of transporation used prior to Drives own vehicle admit Independent with ADL's Yes Is patient alert and oriented? Yes Caregiver for Another Yes: undergoing CA treatment Barriers to Discharge No Discharge Plan Home Referrals Initiated None needed Review Status In Process Please Provide Date Initial DC 07/13/24 Assessment Was Performed Next Review Type Continued Stay Review Document 07/13/24 18:36 MW (Rec: 07/13/24 18:37 MW [id number]) Discharge Planning Assessment Advance Directives? No Household Members spouse
[2024-07-13] MEDS: DEXTROSE 5%-0.9% NS 1,000 ML 100 ML IV (20:17)
[2024-07-13] MEDS: PEG3350/SOD SULF,BICARB,CL/KCL 4,000 ML SOLUTION 4000 ML PO (20:18)
[2024-07-13] MEDS: PANTOPRAZOLE 40 MG VIAL IV (20:29)
[2024-07-13 20:50] LABS: Hematocrit 26.5 % (36-46); Hemoglobin 8.7 g/dL (12.0-16.0)
[2024-07-14] VITALS (12 sets, daily range): BP systolic 106–142; BP diastolic 51–90; PULSE 70–92; RESP 14–21; TEMP 36.2–36.9; O2SAT 94–99; BMI 28.9
--- NOTE | 2024-07-14 | PATH_ITS ---
[facility] Accession Number: [id number] No. of containers..02 Tissue . 01 Material submitted: . PART A: esophagus, E-G Junction - GE JUNCTION PART B: sigmoid colon - SIGMOID POLYP X 2 . 01 Diagnosis: A. GE JUNCTION, BIOPSY: Squamocolumnar junctional mucosa with chronic inflammation. No goblet cell metaplasia identified on H/E slide. No dysplasia or malignancy. . B. SIGMOID COLON POLYPS, BIOPSY: Tubular adenoma. Hyperplastic polyp. [facility] 07/18/2024 1157 Local . 01 Electronically signed: . Rita Merida MD, Pathologist NPI- [id number] . 01 Gross description: . A. Received in formalin labeled with two patient identifiers and designated GE junction. The specimen consists of two harris irregular soft tissues averaging 0.2 cm in greatest dimension, which are entirely submitted in cassette A1. B. Received in formalin labeled with two patient identifiers and designated sigmoid colon polyp, and consists of two harris irregular soft tissues measuring 0.3 and 1.0 cm in greatest dimension. The specimens are entirely submitted in cassette B1. ([id number]) /[facility] 07/15/2024 0912 Local . 01 Pathologist provided ICD-10: K21.9, D12.5 . 01 CPT . 437184, 932275 Specimen Comment: A courtesy copy of this report has been sent to [phone] Performed at: [address] [id number] MD Ming Javed MD Phone: [phone]
[2024-07-14 06:50] LABS: Blood Urea Nitrogen 12 mg/dL (7-17); Calcium 8.2 mg/dL (8.4-10.2); Carbon Dioxide 28 mmol/L (22-32); Chloride 108 mmol/L (98-107); Estimated Glomerular Filt Rate > 60 mL/min (>60); Glucose 107 mg/dL (80-110); HEMOLYSIS < 15 (0-50); Potassium 3.7 mmol/L (3.4-5.1); Sodium 139 mmol/L (137-145)
--- NOTE | 2024-07-14 07:10 | PM.PN.1 ---
Subjective Subjective Interval history: Summary: She was had 5 days of melena. She takes about 4 aspirin a day for her osteoarthritis. She does not take ibuprofen. She was drinking more wine than usual over the holidays. She does had some epigastric abdominal pain and queasiness but no vomiting or hematemesis. She would like to avoid a blood transfusion at any cost. I reassured that we should be able to do that based on her hemoglobin and the number of days that she was had melena. S: She was doing well. No abdominal pain, hematemesis, and her stool did clear out with her prep. Exam Vital Signs (past 8 hours): - 07/14/24 00:00 07/14/24 04:00 Temperature 98.2 F 98.5 F Pulse Rate 79 77 Respiratory Rate 16 18 Blood Pressure 133/90 119/67 Pulse Oximetry 96 97 Oxygen Flow Rate 0 0 Oxygen Delivery Method Room Air Oxygen Flow Rate 0 Narrative Exam Narrative: NAD, alert and oriented. Fluent speech. Chronically ill in appearance. Lungs are clear, normal rate and effort. Heart is regular, no murmur gallop or rub. Abdomen is soft, non distended. Extremities: no edema. Objective Labs 07/14/24 06:04 07/14/24 06:04 Labs: Laboratory Results - last 24 hr 07/13/24 07/13/24 07/14/24 12:54 20:10 06:04 WBC 8.3 RBC 2.83 L Hgb 8.7 L 8.7 L Hct 25.9 L 26.5 L MCV 91.7 MCH 30.8 MCHC 33.5 RDW 15.6 H Plt Count 360 Neut % (Auto) 77.2 H Lymph % (Auto) 15.4 L [place] % (Auto) 6.4 Eos % (Auto) 0.2 L Baso % (Auto) 0.8 Neut # (Auto) 6400 Lymph # (Auto) 1300 Early # (Auto) 500 Eos # (Auto) 0 Baso # (Auto) 100 PT 11.3 INR 1.0 APTT 27 Sodium 137 139 Potassium 3.7 3.7 Chloride 104 108 H Carbon Dioxide 28 28 BUN 22 H 12 Creatinine 0.75 0.63 Estimated GFR > 60 > 60 BUN/Creatinine Ratio 29.3 H 19.0 Glucose 96 107 Calcium 9.4 8.2 L Total Bilirubin 0.4 AST 29 ALT 26 Alkaline Phosphatase 49 Total Protein 6.4 Albumin 3.9 Globulin 2.5 Albumin/Globulin Ratio 1.6 Blood Type B Positive Antibody Screen Negative [facility] Medical History DVT (deep venous thrombosis) Posterior left knee pain (03/2019) Osteoarthritis Food allergy Fibromyalgia Mumps Measles Chicken pox Hypothyroidism Surgical History History of carpal tunnel repair Family History Grandfather Alcoholic Grandfather No problems noted. Grandmother No problems noted. Social History marital status: number of children: 2 household members: spouse lives independently: Yes caregiver/support person: No housing: house education level: college occupational status: employed Smoking Status: Former smoker second hand exposure: No alcohol intake: current substance use type: does not use Assessment & Plan Assessment & Plan narrative: 1. GI bleed with melena, present on admission and active. 2. Remote DVT, not present on admission are active. 3. Exertional dyspnea secondary to blood loss anemia, present on admission and active. Plan: -PPI IV q.12 hours -monitor hemoglobin, patient was reluctant to receive blood products. -EGD today, +/- colonoscopy. Inpatient status, anticipate a 2 midnight length of stay. Full resuscitation. ELIZA is July 15. Time-Based Coding :: [TOTAL MINUTES] spent with patient and on the chart (including review of chart, obtaining history, exam, reviewing outside data, placing orders, documenting exam and treatment plan, and counseling patient) on [DATE]. Quality VTE Deep Vein Thrombosis/Pulmonary Embolism Present on Admission: No
[2024-07-14 07:24] LABS: Hematocrit 26.6 % (36-46); Hemoglobin 8.6 g/dL (12.0-16.0)
--- NOTE | 2024-07-14 09:07 | PM.CN ---
History of Present Illness Consult details Date Patient Seen: 07/14/24 Time Patient Seen: 09:08 Chief complaint: per pt internal bleeding Narrative: Zoila is a 74-year-old woman who presented to the emergency department last night for fatigue, dyspnea and melena. She was found to be anemic. She had been taking aspirin for musculoskeletal discomfort. Her last colonoscopy was approximately 15 years ago. She did start a GoLYTELY prep last night when she got up to the floor. Meds Home Medications and Allergies Home Medications Medication Instructions Recorded Confirmed Type thyroid (pork) 60 mg tablet (FABRIC WORKER FITTER 60 mg PO DAILY #90 tabs 05/17/24 07/13/24 Rx Thyroid) Allergies Allergy/AdvReac Type Severity Reaction Status Date / Time Sulfa (Sulfonamide Allergy UNKNOWN Verified 07/13/24 12:10 Antibiotics) Exam Vital Signs (past 8 hours): - 07/14/24 04:00 Temperature 98.5 F Pulse Rate 77 Respiratory Rate 18 Blood Pressure 119/67 Pulse Oximetry 97 Oxygen Flow Rate 0 Oxygen Delivery Method Room Air Oxygen Flow Rate 0 Const General: No acute distress Objective Labs 07/14/24 06:04 07/14/24 06:04 Labs: Laboratory Results - last 24 hr 07/13/24 07/13/24 07/14/24 12:54 20:10 06:04 WBC 8.3 RBC 2.83 L Hgb 8.7 L 8.7 L 8.6 L Hct 25.9 L 26.5 L 26.6 L MCV 91.7 MCH 30.8 MCHC 33.5 RDW 15.6 H Plt Count 360 Neut % (Auto) 77.2 H Lymph % (Auto) 15.4 L [place] % (Auto) 6.4 Eos % (Auto) 0.2 L Baso % (Auto) 0.8 Neut # (Auto) 6400 Lymph # (Auto) 1300 [place] # (Auto) 500 Eos # (Auto) 0 Baso # (Auto) 100 PT 11.3 INR 1.0 APTT 27 Sodium 137 139 Potassium 3.7 3.7 Chloride 104 108 H Carbon Dioxide 28 28 BUN 22 H 12 Creatinine 0.75 0.63 Estimated GFR > 60 > 60 BUN/Creatinine Ratio 29.3 H 19.0 Glucose 96 107 Calcium 9.4 8.2 L Total Bilirubin 0.4 AST 29 ALT 26 Alkaline Phosphatase 49 Total Protein 6.4 Albumin 3.9 Globulin 2.5 Albumin/Globulin Ratio 1.6 Blood Type B Positive Antibody Screen Negative [facility] Medical History DVT (deep venous thrombosis) Posterior left knee pain (03/2019) Osteoarthritis Food allergy Fibromyalgia Mumps Measles Chicken pox Hypothyroidism Surgical History History of carpal tunnel repair Family History Grandfather Alcoholic Grandfather No problems noted. Grandmother No problems noted. Social History marital status: number of children: 2 household members: spouse lives independently: Yes caregiver/support person: No housing: house education level: college occupational status: employed Tobacco & Substance Use Smoking Status: Former smoker second hand exposure: No alcohol intake: current substance use type: does not use Assessment & Plan Assessment and plan (1) Acute blood loss anemia: Status: Acute Plan I spoke to Zoila about the various possibilities for melena and GI bleeding and the limitations of EGD and colonoscopy. I recommend we proceed with EGD and colonoscopy to diagnosed with a source blood loss. Time-Based Coding :: [TOTAL MINUTES] spent with patient and on the chart (including review of chart, obtaining history, exam, reviewing outside data, placing orders, documenting exam and treatment plan, and counseling patient) on [DATE].
[2024-07-14] MEDS: PANTOPRAZOLE 40 MG VIAL IV ×2 (09:31→21:18)
[2024-07-14] MEDS: LACTATED RINGERS 1,000 ML 42 ML IV (15:00)
[2024-07-14] MEDS: LACTATED RINGERS 1,000 ML 84 ML IV (15:37)
--- NOTE | 2024-07-14 16:05 | P.OP.EGD&C_ITS ---
Operative Date/Time/Diagnoses Date of procedure: 07/14/24 Time of procedure: 16:05 Pre-op diagnosis: Melena Post-op diagnosis: same Procedure & Clinicians Study performed: Melena Same procedure as scheduled: Yes Surgeon: Thang Pope Procedure Notes Procedure in detail: Surgeon: Thang Pope MD Anesthesia: Saniya Addison CRNA Procedure in detail: A timeout was performed. A bite blocked was placed and monitors were attached to the patient. The patient was positioned in the left lateral decubitus position. Sedation was administered. Once the patient was sedated the endoscope was inserted through the bite block and passed through the esophagus and stomach and into the duodenum. No abnormalities were found. There was no fresh or old blood or clot. We then withdrew the scope into the stomach. No abnormalities were seen. We did perform random biopsies of the antral mucosa with cold forceps to rule out H pylori. The endoscope was retroflexed and no significant hiatal hernia was noted.. The endoscope was straightned and withdrawn into the esophagus. There were tongues of salmon- colored mucosa exceeding 2 cm extending from the GE junction to the distal esophagus. Biopsies were taken with cold forceps from the salmon-colored mucosa. EGD findings: [place]-colored mucosa extending from the GE junction greater than 2 cm Next we repositioned the patient for a colonoscopy. A digital rectal exam was performed and was normal. The colonoscope was inserted and advanced to the cecum. The appendiceal orifice was identified and photographed. The scope was slowly withdrawn over greater than 6 minutes. There were two 5 mm sigmoid colon polyps removed with a cold snare. The scope was retroflexed in the rectum and no abnormalities were seen. Colonoscopy findings: 2 5 mm sigmoid colon polyps Total procedural EBL: 10 mL Scope withdrawal time: 8 minutes Sedation minutes: 22 minutes Post-procedure Disposition: PACU
[2024-07-14] MEDS: ONDANSETRON 4 MG/2 ML INJ IV (17:02)
[2024-07-14] MEDS: DEXTROSE 5%-0.9% NS 1,000 ML 100 ML IV (17:02)
[2024-07-14] MEDS: ACETAMINOPHEN 325 MG TABLET 650 MG PO (21:20)
[2024-07-15 02:39] VITALS: BP 112/63; PULSE 80; RESP 16; TEMP 36.4; O2SAT 96
[2024-07-15] MEDS: DEXTROSE 5%-0.9% NS 1,000 ML 100 ML IV (03:10)
[2024-07-15 06:00] VITALS: BP 114/60; PULSE 80; RESP 18; TEMP 36.7; O2SAT 97
[2024-07-15 06:57] LABS: BUN Creatinine Ratio 12.3 (6-22); Blood Urea Nitrogen 8 mg/dL (7-17); Carbon Dioxide 26 mmol/L (22-32); Chloride 113 mmol/L (98-107); Estimated Glomerular Filt Rate > 60 mL/min (>60); HEMOLYSIS < 15 (0-50); Potassium 3.9 mmol/L (3.4-5.1); Sodium 141 mmol/L (137-145)
[2024-07-15 06:58] LABS: Calcium 8.3 mg/dL (8.4-10.2); Glucose 103 mg/dL (80-110)
[2024-07-15] MEDS: ACETAMINOPHEN 325 MG TABLET 650 MG PO (07:08)
[2024-07-15 07:34] LABS: Hematocrit 23.1 % (36-46); Hemoglobin 7.7 g/dL (12.0-16.0)
[2024-07-15 08:00] VITALS: BP 104/80; PULSE 69; RESP 14; TEMP 36.6; O2SAT 96
[2024-07-15] MEDS: PANTOPRAZOLE 40 MG VIAL IV (09:30)
[2024-07-15 12:00] VITALS: BP 100/59; PULSE 72; RESP 16; TEMP 36.2; O2SAT 96
[2024-07-15 13:45] LABS: Hematocrit 26.6 % (36-46); Hemoglobin 8.8 g/dL (12.0-16.0)
--- NOTE | 2024-07-15 14:33 | P.DS_ITS ---
History of Present Illness History of Present Illness Chief complaint: per pt internal bleeding Narrative: From ER doctor: 74-year-old woman presents with black stool starting 7 days ago. Also complains of global weakness, nausea, dizziness, with exertional dyspnea. Patient has a history of DVT was on Coumadin but has replaced the Coumadin with fermented cinnamon recently. She notes that she had some bright red bleeding per rectum [id number] years ago with normal colonoscopy follow up. She has not had upper GI bleeding. She notes she has been taking quite a bit of aspirin for musculoskeletal reasons recently but has since stopped. Additional information: She was had 5 days of melena. She takes about 4 aspirin a day for her osteoarthritis. She does not take ibuprofen. She was drinking more wine than usual over the holidays. She does had some epigastric abdominal pain and queasiness but no vomiting or hematemesis. She would like to avoid a blood transfusion at any cost. I reassured that we should be able to do that based on her hemoglobin and the number of days that she was had melena. Discharge Providers Provider Date of admission: 07/13/24 17:51 Discharge Date: 07/15/24 Primary care physician: Veronica Tidwell MD Consults: 07/13/24 17:39 Consult to General Surgery Stat Comment: Consulting Provider: Thang Pope Reason for consultation: upper GI bleed Has provider been notified: Yes Discharge provider: Salomón Mijares MD Summary Hospital Course Discharge Diagnosis: 1. GI bleed with melena, present on admission and improved. 2. Remote DVT, not present on admission and not active. 3. Exertional dyspnea secondary to blood loss anemia, present on admission and active. Hospital Course: She was admitted with melena and a blood loss anemia. She underwent prepped for colonoscopy and an EGD and colonoscopy on July 14 which were both unrevealing. Her melena appeared to resolve. Her hemoglobin remained stable overnight. She was felt to be stable for discharge home. She will continue a PPI b.i.d. which was started IV in the hospital and request will be made for her PCP to send her to [facility] for duration of a PillCam or further evaluation. I did send an electronic message to Dr. Strong at [facility] who notes the process for PillCam is to have a referral GI doctor 1st to a then order the PillCam. Status at Discharge Cognitive/behavioral status at discharge: oriented Functional status at discharge: independent ambulation Overall status at discharge: patient is back to baseline Time Spent with Patient Time spent: Greater than 30 minutes Exam Vital Signs (past 8 hours): - 07/15/24 07:30 07/15/24 08:00 07/15/24 12:00 Temperature 97.8 F 97.2 F L Pulse Rate 69 72 Respiratory Rate 14 16 Blood Pressure 104/80 100/59 L Pulse Oximetry 96 96 Oxygen Delivery Method Room Air Oxygen Flow Rate 0 0 Oxygen Delivery Method Room Air Oxygen Flow Rate 0 Narrative Exam Narrative: NAD, alert and oriented. Fluent speech. Lungs are clear, normal rate and effort. Heart is regular, no murmur gallop or rub. Abdomen is soft, non distended. Extremities are free of edema. Objective Labs 07/15/24 13:38 07/15/24 06:18 Labs: Laboratory Results - last 24 hr 07/15/24 07/15/24 06:18 13:38 Hgb 7.7 L 8.8 L Hct 23.1 L 26.6 L Sodium 141 Potassium 3.9 Chloride 113 H Carbon Dioxide 26 BUN 8 Creatinine 0.65 Estimated GFR > 60 BUN/Creatinine Ratio 12.3 Glucose 103 Calcium 8.3 L PFSH Medical History DVT (deep venous thrombosis) Posterior left knee pain (03/2019) Osteoarthritis Food allergy Fibromyalgia Mumps Measles Chicken pox Hypothyroidism Surgical History History of carpal tunnel repair Family History Grandfather Alcoholic Grandfather No problems noted. Grandmother No problems noted. Social History marital status: number of children: 2 household members: spouse lives independently: Yes caregiver/support person: No housing: house education level: college occupational status: employed Smoking Status: Former smoker second hand exposure: No alcohol intake: current substance use type: does not use Discharge Assessment & Plan Assessment and Plan Assessment: 1. GI bleed with melena, present on admission and improved. 2. Remote DVT, not present on admission and not active. 3. Exertional dyspnea secondary to blood loss anemia, present on admission and active. Plan of Treatment: Follow up PCP within 1 week, needs referral to [facility] for possible pill cam. Hg next week. Discharge Plan Discharge Plan Patient Disposition: Home Provider Discharge Comment: Stable for discharge home with close follow up and repeat hemoglobin next week. We will also send a request for referral for PillCam to [facility]. Discharge orders & Medications Prescriptions: New pantoprazole [Protonix] 40 mg tablet,delayed release (DR/EC) 40 mg PO BID Qty: 60 2RF Continued BARN AND PROPERTY MANAGER Thyroid 60 mg tablet 60 mg PO DAILY Qty: 90 0RF Follow up/Referrals: Veronica Tidwell MD [Primary Care Provider] - Discharge Health Status Multidrug resistant organism: No MDRO Diet/Activity/Treatments Diet: Diet as Tolerated Activity: As tolerated. Visit Report/Discharge Packet Instructions: Good Food Sources of Iron, DI for Colonoscopy, DI for Colon Polypectomy, DI for Upper GI Endoscopy, How to Prevent Falls, Gastrointestinal Bleeding, How to Avoid Taking NSAID-Containing Products Stand Alone Forms: Patient Portal/API, Colonoscopy Result: [facility] Surg Discharge Data Primary Care Provider: Veronica Tidwell Quality VTE Deep Vein Thrombosis/Pulmonary Embolism Present on Admission: No
--- NOTE | 2024-07-15 14:45 | CM.DPNOTE ---
DCP note AUTOMATIC MAINTAINER reviewed EMR. Per provider in morning rounds, if pt has a successful BM today will dc home. Per chart review in afternoon, pt dc order in. AUTOMATIC MAINTAINER updated TCM team on pt's discharge. (unclear to this AUTOMATIC MAINTAINER at this time why it was hospitalist/surgeon following her admission and not [facility]/surgeon following pt if Dr. Tidwell is PCP) No new CM needs identified at this time P: Home today with spouse support and OP f/u repeat hemoglobin. no identified barriers to safe dc home at this time. CM team will continue to follow as needed JULIO Linares
--- NOTE | 2024-07-15 15:56 | CM.MNRNOTE ---
Pt feels ready to d/c to home. Seen by MD and given d/c instructions. Reviewed discharge packet. Pt is going to drive self home, she drove here and she feels safe to drive home. Discharge packet given and reviewed. She will picking belt operator rx on her way home. Has no pain at this time. Has not have a bm. Pt understands she is to NSAIDS. Questions answered. Pt d/c to home via her own power and car.
== END 2024-07-15 15:55 | disposition home or self-care (01) ==
LOC: ED 17:39 → AC 18:27
PROVIDERS: Surgery; Admitting Provider Hospitalist; Emergency Provider Emergency Medicine; PCP Family Medicine; Referring Provider Emergency Medicine; Visit Provider Hospitalist
PROC: 0DJD8ZZ Inspection of Lower Intestinal Tract, Via Natural or Artificial Opening Endoscopic (ICD-10-PCS; CPT 45378; principal; 2024-07-14 15:30)
PROC: 0DJ08ZZ Inspection of Upper Intestinal Tract, Via Natural or Artificial Opening Endoscopic (ICD-10-PCS; CPT 45385; 2024-07-14 15:30)
DX: K92.2 Gastrointestinal hemorrhage, unspecified (principal); D62 Acute posthemorrhagic anemia; Z86.718 Personal history of other venous thrombosis and embolism; Z79.01 Long term (current) use of anticoagulants
CPT/HCPCS: 45385; 43239; 36415; 80048; 80053; 81003; 82272; 85014; 85018; 85025; 85610; 85730; 86850; 86900; 86901; 93005; 93010; 96361; 96374; 96375; 96376; 99232; 99284; G0378; J2405; J2470; J3010

== ENCOUNTER → 2024-07-22 12:13 | Outpatient (CLI) | payer MEDICARE, SELFPAY ==
[2024-07-13 20:22] VITALS: BMI 28.9
[2024-07-22 12:46] LABS: Add Manual Diff / Slide Review NO; Basophils Absolute Auto 100 /uL (0-100); Basophils Percent Auto 1.2 % (0-2); Eosinophils Absolute Auto 0 /uL (0-450); Eosinophils Percent Auto 0.5 % (2-4); Hematocrit 27.1 % (36-46); Lymphocytes Absolute Auto 1100 /uL (1100-4500); Lymphocytes Percent Auto 16.7 % (25-40); Mean Corpuscular HGB Conc 33.1 % (30-36); Mean Corpuscular Hemoglobin 29.4 PG (26-34); Mean Corpuscular Volume 88.7 fL (80-100); Monocytes Absolute Auto 600 /uL (0-900); Monocytes Percent Auto 9.2 % (3-14); Neutrophils Absolute Auto 4600 /uL (1500-7000); Neutrophils Percent Auto 72.4 % (50-75); Platelet Count 522 X10^3/uL (150-400); Red Blood Cell Count 3.05 X10^6/uL (4.0-5.2); Red Cell Distribution Width 15.8 % (11.6-14.8); White Blood Cell Count 6.4 X10^3/uL (4.5-11.0)
== END ==
PROVIDERS: PCP Family Medicine; Referring Provider Family Medicine; Visit Provider Family Medicine
DX: D64.9 Anemia, unspecified (principal)
CPT/HCPCS: 36415; 85025